=== PATIENT | female | born 1990 | race African-American/Black ===

== ENCOUNTER 2016-11-18 18:30 | Inpatient (IN) | payer OTHER ==
[~2016-11-18] VITALS: Ht 154.9 cm; Wt 63.5 kg
--- NOTE | ~2016-11-18 | CR18 ---
[facility] A Service of [facility] RADIOLOGY TEXT RESULTS PATIENT: GARY SAMUELS LOCATION: [facility] 232-01 : 89 UNIT #: [id number] AGE: [address]: Joaquin Castillo MD SEX: F ORDER DR: [id number] [facility] [address] [facility]. [place], [place] [address] [id number] I MR#: [id number] Acc #: [id number] NAME: GARY SAMUELS : 1990 SEX: F STUDY DATE/TIME: 11/20/2016 15:38 UNIT: [facility] ROOM: [facility] STUDY DESCRIPTION: CR Ankle 2 Views Rt Attending Physician: Joaquin Castillo M.D. Ordering Physician: Joaquin Castillo M.D. MEDICAL IMAGING REPORT This report is preliminary unless electronic signature is present EXAM Right ankle 11/20/2016 HISTORY 26-year-old female status post ORIF right ankle today. COMPARISON Right ankle, 11/18/2016. FINDINGS 2 intraoperative fluoroscopic images demonstrate postsurgical changes from ORIF. Images were interpreted intraoperatively by the attending surgeon. Total fluoroscopic time 1 minute, 15 seconds. Dictated by... Javan Olson M.D. THIS IS AN ELECTRONICALLY VERIFIED REPORT Javan Olson M.D. at 11/23/2016 1:19 PM JULIO CESAR/elizabeth TD: 11/20/2016 21:23 JOB #: [id number] MEDICAL IMAGING REPORT Page 1 of 1 COPY
--- NOTE | ~2016-11-18 | CT71 ---
[facility] A Service of [facility] RADIOLOGY TEXT RESULTS PATIENT: GARY SAMUELS LOCATION: [facility] : 89 UNIT #: [id number] AGE: [address]: Joaquin Castillo MD SEX: F ORDER DR: [id number] [place] [id number] [facility]. [place], [place] [address] [id number] I MR#: [id number] Acc #: [id number] NAME: GARY SAMUELS. : 1990 SEX: F STUDY DATE/TIME: 11/18/2016 21:57 UNIT: [facility] ROOM: [facility] STUDY DESCRIPTION: CT Head Wo Contrast Attending Physician: Joaquin Castillo M.D. Ordering Physician: Sandrita Linda P.A.-C. Primary Care Physician: Renee Hall MEDICAL IMAGING REPORT This report is preliminary unless electronic signature is present EXAM CT head without contrast 11/18/2016 HISTORY 26-year-old female with head pain status post fall down stairs today. COMPARISON None. TECHNIQUE Routine unenhanced axial images performed through the brain. This CT examination was performed with one or more of the following radiation dose reduction techniques: automatic exposure control, adjustment of mA and/or kV according to patient size, and iterative reconstruction. FINDINGS No hemorrhage, acute infarction, mass lesion, or abnormal extraaxial fluid collection. No midline shift or focal mass effect. Ventricular system is normal in size and configuration. No acute bony abnormality. Visualized paranasal sinuses and mastoid air cells are clear. IMPRESSION Negative unenhanced head CT. Dictated by... Javan Olson M.D. THIS IS AN ELECTRONICALLY VERIFIED REPORT Javan Olson M.D. at 11/19/2016 4:03 PM JULIO CESAR/teresita TD: 11/19/2016 07:11 [facility] A Service [facility] RADIOLOGY TEXT RESULTS PATIENT: GARY SAMUELS LOCATION: [facility] : 89 UNIT #: [id number] AGE: [address]: Joaquin Castillo MD SEX: F ORDER DR: JOB #: [id number] MEDICAL IMAGING REPORT Page 1 of 1 COPY
--- NOTE | ~2016-11-18 | CR18 ---
[facility] A Service of [facility] RADIOLOGY TEXT RESULTS PATIENT: GARY SAMUELS LOCATION: [facility] 232- : [birth year] UNIT #: [id number] AGE: [address]: Joaquin Castillo MD SEX: F ORDER DR: [id number] [facility] [address] [facility]. [place], [place] [address] [id number] I MR#: [id number] Acc #: [id number] NAME: GARY SAMUELS. : 1990 SEX: F STUDY DATE/TIME: 11/18/2016 21:30 UNIT: [facility] ROOM: [facility] STUDY DESCRIPTION: CR Ankle 2 Views Rt Attending Physician: Joaquin Castillo M.D. Ordering Physician: Sandrita Linda P.A.-C. Primary Care Physician: Renee Hall MEDICAL IMAGING REPORT This report is preliminary unless electronic signature is present EXAM Right ankle, 11/18/2016. HISTORY 26-year-old female postreduction of right ankle fracture dislocation status post fall down stairs today. COMPARISON Right ankle same date. FINDINGS Three views of the right ankle demonstrate interval reduction of previously described fracture dislocation of the tibiotalar joint. There are again noted mildly displaced fractures of the distal fibular metaphysis, posterior malleolus, and medial malleolus; which demonstrated improved alignment. Satisfactory reduction of the tibiotalar joint. IMPRESSION Satisfactory reduction of the tibiotalar dislocation with improved alignment of fractures involving the medial malleolus, posterior malleolus, and distal fibular metaphysis. Dictated by... Javan Olson M.D. THIS IS AN ELECTRONICALLY VERIFIED REPORT Javan Olson M.D. at 11/19/2016 4:03 PM JULIO CESAR/randy TD: 11/19/2016 06:46 JOB #: [id number] MEDICAL IMAGING REPORT [facility] A Service [facility] RADIOLOGY TEXT RESULTS PATIENT: GARY SAMUELS LOCATION: [facility] 232-01 : [birth year] UNIT #: [id number] AGE: [address]: Joaquin Castillo MD SEX: F ORDER DR: Page 1 of 1 COPY
--- NOTE | ~2016-11-18 | DS ---
Unit #: [id number] #: [id number] Patient: GARY SAMUELS [id number] [address] [address] [id number] I MR#: [id number] NAME: GARY SAMUELS ROOM: 232 Age: 26 Sex: F Admission Date: 11/19/2016 : 1990 Discharge Date: 11/21/2016 Attending Physician: Joaquin Castillo M.D. Primary Care Physician: Renee Hall DISCHARGE SUMMARY DISCHARGE DIAGNOSIS Right traumatic ankle fracture dislocation. INDICATION FOR ADMISSION Ms. Samuels is a 26-year-old pleasant female who fell on the stairs, sustained a right traumatic ankle fracture dislocation. She was admitted and underwent open reduction and internal fixation 11/20/[address] Joaquin Castillo. She tolerated the procedure well. Hospital course was uncomplicated. Physical therapy will evaluate and treat and do crutch training prior to discharge. She is to be strict nonweightbearing on the right lower extremity for 6 weeks. She will follow up in the office in 2 weeks, at which point sutures will be removed and repeat x-rays obtained of the right ankle. Any questions or concerns, please call the office at [phone]. Dictated by... Joaquin Castillo M.D. LUCINDA/mara TD: 11/23/2016 08:29 JOB #: [id number] DISCHARGE SUMMARY Page 1 of 1 X Joaquin Castillo MD X DISCHARGE SUMMARY
--- NOTE | ~2016-11-18 | HP ---
Unit #: [id number] #: [id number] Patient: YODIT SAMUELS [id number] [address] [place], [place] [address] [id number] I MR#: [id number] NAME: YODIT SAMUELS. ROOM: 232 Age: 26 Sex: F Admission Date: 11/19/2016 : 1990 Attending Physician: Joaquin Castillo M.D. Primary Care Physician: Renee Hall HISTORY AND PHYSICAL CHIEF COMPLAINT Right ankle injury. HISTORY OF PRESENT ILLNESS Yodit is a 26-year-old female, who reports that she was going up steps at apartment and she tried to turn around to go back downstairs and she may have blacked out and fallen down the steps. When she came to, her ankle was dislocated. She was brought to the emergency room. She was sedated and the ankle was put back in place. She was placed into a splint. Symptoms were worse with motion, better with rest. She describes a dull ache. She is doing okay right now. No prior problems with the ankle. Head CT was performed and negative. PAST MEDICAL HISTORY None. PAST SURGICAL HISTORY x2. MEDICATIONS None. ALLERGIES None. SOCIAL HISTORY The patient does smoke cigarettes daily. She denies alcohol or drug use. She is employed within the medical field. REVIEW OF SYSTEMS No other pertinent positives or negatives noted, other than what is mentioned in the HPI. PHYSICAL EXAMINATION GENERAL: Patient is alert and oriented for exam. No acute distress. VITAL SIGNS: Temperature 98.4 degrees Fahrenheit, pulse 70, respiratory rate 16, 100% oxygen saturation on room air, blood pressure 130/90. HEENT: Normocephalic and atraumatic. Extraocular movements intact. Mucous membranes moist. NECK: Cervical spine midline with full motion. No appreciable JVD. LUNGS: Breathing nonlabored and chest rise symmetric. HEART: Regular rate and rhythm. ABDOMEN: Soft, nontender, nondistended. EXTREMITIES: No clubbing, cyanosis, or edema. Unit #: [id number] #: [id number] Patient: YODIT SAMUELS SKIN: No skin lesions. Focused examination of the right lower extremity reveals splint in place. Digit motion intact of the toes. Foot warm and well perfused. Compartments are soft. Tenderness to palpation noted. DIAGNOSTIC STUDIES IMAGING: Head CT: Negative. X-rays of the right ankle reveal a fracture/dislocation status post reduction. There was a trimalleolar ankle fracture. ASSESSMENT Right trimalleolar ankle fracture/dislocation. PLAN The patient can have regular diet. She will be NPO after midnight. Will plan for ORIF tomorrow. Risks, benefits, and alternatives of surgery were discussed with the patient. Informed consent will be obtained. Risks include but not limited to infection, bleeding, nerve injury, blood clots, risks associated with anesthesia, need for further surgery, and possibly . All of her questions were answered. Will proceed with surgery by Dr. Castillo tomorrow. Dictated by Martin Mckeon M.D. ALEXI/maryuri TD: 11/19/2016 12:47 JOB #: [id number] CC: [phone] HISTORY AND PHYSICAL Page 1 of 1 X X HISTORY AND PHYSICAL
--- NOTE | ~2016-11-18 | OR ---
Unit #: [id number] #: [id number] Patient: GARY SAMUELS [id number] [place] [address] [facility]. [place], [place] [address] [id number] I MR#: [id number] NAME: GARY SAMUELS. ROOM: 232 Date of Procedure: 11/20/2016 Admission Date: 11/19/2016 Surgeon: Joaquin Castillo M.D. : 1990 Attending Physician: Joaquin Castillo M.D. Primary Care Physician: Renee Hall OPERATIVE REPORT PREOPERATIVE DIAGNOSIS Right trimalleolar ankle fracture. POSTOPERATIVE DIAGNOSIS Right trimalleolar ankle fracture. PROCEDURE PERFORMED Open reduction and internal fixation, right trimalleolar ankle fracture. PAINTER SUPERVISOR Ariel William Sr, M.D. ANESTHESIA General endotracheal anesthesia. COMPLICATIONS None. COUNTS Sponge and needle counts were correct at the conclusion of the case. INDICATION FOR SURGERY Ms. Pinon is a 26-year-old female who fell on the stairs and sustained a right trimalleolar ankle fracture dislocation. She presented to [facility] Emergency Room. She underwent closed reduction, and was splinted. Orthopedics was consulted for definitive management. Risks and benefits of open reduction and internal fixation were discussed in detail. Risks of infection, deep vein thrombosis, pulmonary embolism, DVT, PE, need for revision surgery, persistent pain, need for removal of hardware, and . Questions were answered to her satisfaction. Informed consent was obtained. DESCRIPTION OF PROCEDURE After the patient was identified in the preoperative holding area, the operative site was marked. The patient was brought to the operating room for surgery and placed supine on the operating room table. General endotracheal anesthesia was placed uneventfully. A bump underneath the right hip was placed and the right lower extremity prepped and draped in the usual sterile fashion. Esmarch was used to exsanguinate the limb. Tourniquet was inflated to 250 mmHg. Then, making a lateral based incision with a #15 blade scalp was utilized, full-thickness incision was made down to the periosteum. The fracture was encountered. The hematoma Unit #: [id number] #: [id number] Patient: GARY SAMUELS was removed. The fracture line was debrided of fracture hematoma. It was reduced with a bone reduction forceps. Following this, the anterior-posterior screw was placed. A transverse 3.5 screw followed by 2.5 screw and was measured in appropriate length, 3.5 cortical screw was placed and then using a Trae 4 hole distal fibular locking plate was then applied. Using C-arm guidance, the screw holes were filled in standard AO fashion using a combination of locking and nonlocking screws. Then, attention was then directed to the medial malleolus where a curvilinear incision was made over the medial malleolus. It was reduced with [id number] bone reduction clamp reducing the fracture. Then, 2 threaded K-wires were placed across the fracture line using the cannulated screw set. Two 40 mm 1/ 2 threaded screws were placed holding the medial malleolar fracture in good position. Then, a lateral C-arm x-ray was obtained which showed the posterior malleolar fragment to be least 30% of the total anterior to posterior tibial depth. Then, using a Vina along posterior to the lateral malleolus was used to reduce the fracture and then 2 threaded K-wires were placed through a separate anterior based incision was placed into the posterior tibial fragment. This was measured and then 40 and a 42 one-third threaded cannulated screws were placed across the fracture line holding the fracture area nicely. Following this, the wounds were copiously irrigated with sterile saline. Final x-rays AP mortise and lateral views were obtained which showed good fracture reduction and hardware placement. The fascial layer was closed with 0 Vicryl, 2-0 Vicryl, and 3-0 nylon was used to close the skin. Sterile dressings were applied. She was placed in a splint and was awakened and taken to recovery in stable condition. No intraoperative complications. Dictated by... Rach Maya/china TD: 11/21/2016 14:41 JOB #: [id number] OPERATIVE REPORT Page 1 of 1 X Joaquin Castillo MD X PROCEDURE OPERATIVE NOTE
--- NOTE | ~2016-11-18 | CR18 ---
[facility] A Service of [facility] RADIOLOGY TEXT RESULTS PATIENT: GARY SAMUELS LOCATION: [facility] 232-01 : [birth year] UNIT #: [id number] AGE: [address]: Joaquin Castillo MD SEX: F ORDER DR: [id number] [facility] [address] [facility]. [place], [place] [address] [id number] I MR#: [id number] Acc #: [id number] NAME: GARY SAMUELS. : 1990 SEX: F STUDY DATE/TIME: 11/18/2016 19:06 UNIT: [facility] ROOM: [facility] STUDY DESCRIPTION: CR Ankle 2 Views Rt Attending Physician: Joaquin Castillo M.D. Ordering Physician: Sandrita Linda P.A.-C. Primary Care Physician: Renee Hall MEDICAL IMAGING REPORT This report is preliminary unless electronic signature is present EXAM Right ankle, 11/18/2016. HISTORY 26-year-old female with right ankle pain status post fall down stairs today. COMPARISON None. FINDINGS Two views of the right ankle demonstrate posterior tibiotalar dislocation with a displaced articular fracture of the posterior malleolus. There is at least 1.6 cm gap at the articular surface. The posterior fracture fragment measures at least 4 cm in length. There is also a displaced spiral oblique fracture of the distal fibular metaphysis and a displaced transverse fracture through the medial malleolus. There is posterior displacement of the talus at least 2.5 cm and lateral displacement at least 1.9 cm relative to the distal tibia. IMPRESSION Posterolateral dislocation of the tibiotalar joint with displaced fractures of the posterior malleolus, medial malleolus, and distal fibular metaphysis. Dictated by... Javan Olson M.D. THIS IS AN ELECTRONICALLY VERIFIED REPORT Javan Olson M.D. at 11/19/2016 3:58 PM JULIO CESAR/randy TD: 11/19/2016 05:23 [facility] A Service of [facility] RADIOLOGY TEXT RESULTS PATIENT: GARY SAMUELS LOCATION: [place] [address] : [birth year] UNIT #: [id number] AGE: [address]: Joaquin Castillo MD SEX: F ORDER DR: JOB #: [id number] MEDICAL IMAGING REPORT Page 1 of 1 COPY
--- NOTE | ~2016-11-18 | CT52 ---
[facility] A Service of [facility] RADIOLOGY TEXT RESULTS PATIENT: GARY SAMUELS LOCATION: A - : 89 UNIT #: [id number] AGE: [address]: Joaquin Castillo MD SEX: F ORDER DR: [id number] [place] [address] [facility]. [place], [place] [address] [id number] I MR#: [id number] Acc #: [id number] NAME: GARY SAMUELS. : 1990 SEX: F STUDY DATE/TIME: 11/18/2016 21:57 UNIT: [facility] ROOM: [facility] STUDY DESCRIPTION: CT Cervical Spine Wo Cont Attending Physician: Joaquin Castillo M.D. Ordering Physician: Sandrita Linda P.A.-C. Primary Care Physician: Renee Hall MEDICAL IMAGING REPORT This report is preliminary unless electronic signature is present EXAM CT cervical spine without contrast 11/18/2016 HISTORY 26-year-old female with neck pain status post fall down stairs today. COMPARISON Cervical spine 04/14/2007. TECHNIQUE Helical scan performed through the cervical spine without IV contrast. Coronal and sagittal reformatted images. This CT examination was performed with one or more of the following radiation dose reduction techniques: automatic exposure control, adjustment of mA and/or kV according to patient size, and iterative reconstruction. FINDINGS No evidence of acute fracture or subluxation. Vertebral body heights and alignment are normally maintained. Prevertebral soft tissues are normal. The atlantoaxial relationship normal. Cervicothoracic junction is unremarkable. No significant bony canal stenosis. There is mild reversal of the normal cervical lordosis as the patient is positioned in the scanner. Paravertebral soft tissues are unremarkable. Lung apices are unremarkable. IMPRESSION No acute cervical spine injury. There is mild reversal of the normal cervical lordosis as the patient is positioned in the scanner. Dictated by... Javan Olson M.D. [facility] A Service [facility] RADIOLOGY TEXT RESULTS PATIENT: GARY SAMUELS LOCATION: [facility] 232-01 : [birth year] UNIT #: [id number] AGE: [address]: Joaquin Castillo MD SEX: F ORDER DR: THIS IS AN ELECTRONICALLY VERIFIED REPORT Javan Olson M.D. at 11/19/2016 4:04 PM Coby TD: 11/19/2016 07:52 JOB #: [id number] MEDICAL IMAGING REPORT Page 1 of 1 COPY
[~2016-11-18 18:30] MED LIST: BACTRIM DS TABL1 TA1 PO; BENZONATATE PO; DIFLUCAN PO; FLONASE16 GM; LORTAB 5/500 TA1 TA1 PO; MACROBID 100 M100 MG PO; METRONIDAZOLE PO; PHENERGAN PO; PHENERGAN12.5 M1 PR; PHENERGAN25 MG PO; TAMIFLU6 MG/1 ML PO; ZITHROMAX PO
[2016-11-20 06:12] LABS: HEMATOCRIT 34.8 % (35.0-45.0); HEMOGLOBIN 11.3 gm/dL (12.0-16.0); MEAN CELL VOLUME 89.9 FL (83-96); MEAN CORPUSCULAR HEMOGLOBIN 29.2 PG (28-34); MEAN CORPUSCULAR HGB CONC 32.5 g/dL (30-36); MEAN PLATELET VOLUME 8.3 FL (6.5-11.5); RED BLOOD COUNT 3.87 X10e (3.90-5.30); RED CELL DISTRIBUTION WIDTH 13.8 % (11.0-15.5); WHITE BLOOD COUNT 6.9 X10e3 (4.0-10.5)
[2016-11-20 06:22] LABS: PROTHROMBIN TIME (PATIENT) 11.1 SECONDS (10.0-11.7)
[2016-11-20 06:55] LABS: BUN/CREATININE RATIO 16.66; CALCIUM SERUM 8.3 mg/dL (8.4-10.2); CREATININE SERUM 0.6 mg/dL (0.6-1.4); GLOM FILT RATE Estimated 144.8 mL/min (>60); POTASSIUM 3.4 mmol/L (3.5-5.1)
[2016-11-21] MEDS ORDERED: BAYER ASPIRIN325 M1 PO (09:04)
[2016-11-21] MEDS ORDERED: PERCOCET 5/321 UDTAB PO (09:05)
== END 2016-11-21 11:39 | disposition home or self-care (01) | DRG 494 ==
LOC: CED 18:30 → C2A 11-19 01:20 → CEDOF 11-19 01:20 → C2A 11-19 01:37 → CEDOF 11-19 01:37 → CED 11-19 01:37 → C2A 11-19 03:39 → CEDOF 11-19 03:39 → C2A 11-21 11:39
PROVIDERS: Specialist
PROC: 0QSG04Z Reposition Right Tibia with Internal Fixation Device, Open Approach (ICD-10-PCS; 2016-11-20)
PROC: 0QSJ04Z Reposition Right Fibula with Internal Fixation Device, Open Approach (ICD-10-PCS; principal; 2016-11-20 14:00)
DX: S82.851A Displaced trimalleolar fracture of right lower leg, initial encounter for closed fracture (principal); F17.210 Nicotine dependence, cigarettes, uncomplicated; W10.9XXA Fall (on) (from) unspecified stairs and steps, initial encounter
CPT/HCPCS: 27818; 70450; 72125; 73600; 76001; 80048; 84703; 85027; 85610; 94010; 96374; 96375; 97116; 97162; 99152; 99285; C1713; G8978-GP; G8979-GP; J0690; J1100; J1170; J1650; J2250; J2405; J2550; J2795; J3010

== ENCOUNTER 2016-11-25 19:45 | Emergency (ER) | payer OTHER ==
--- NOTE | ~2016-11-25 | CR63 ---
[facility] A Service of [facility] RADIOLOGY TEXT RESULTS PATIENT: GARY SAMUELS LOCATION: [facility] : 89 UNIT #: [id number] AGE: [address]: DON CALIXTO APRN SEX: F ORDER DR: [id number] [facility] [address] [facility]. [place], [place] [address] [id number] E MR#: [id number] Acc #: [id number] NAME: GARY SAMUELS. : 1990 SEX: F STUDY DATE/TIME: 11/25/2016 20:29 UNIT: [facility] ROOM: STUDY DESCRIPTION: CR Chest 2 View Attending Physician: Don Calixto Aprn Ordering Physician: Don Calixto Aprn Primary Care Physician: Renee Hall M.D. MEDICAL IMAGING REPORT This report is preliminary unless electronic signature is present EXAM Chest PA and lateral, 11/25/2016 HISTORY Chest pain, chest tightness, cough, chest congestion and shortness of breath beginning today. FINDINGS PA and lateral examination of the chest upright shows a good expansion of the parenchyma with a normal distribution of the pulmonary vascularity. There is no indication of congestion, effusion, infiltrate, tumor, or nodular density. The pleural reflections and diaphragmatic contours are normal. The cardiac silhouette and mediastinal anatomy is within normal limits. IMPRESSION Normal chest. Dictated by... Christiano Lucio M.D. THIS IS AN ELECTRONICALLY VERIFIED REPORT Christiano Lucio M.D. at 11/26/2016 2:08 PM ASHLEIGH/paty TD: 11/25/2016 22:29 JOB #: [id number] MEDICAL IMAGING REPORT Page 1 of 1 COPY
--- NOTE | ~2016-11-25 | EKG ---
PATIENT: GARY SAMUELS UNIT #: [id number] Ventricular Rate: 96 BPM Atrial Rate: 96 BPM P-R Interval: 146 ms QRS Duration: 82 ms Q-T Interval: 352 ms QTC Calculation(Bezet): 444 ms P [place]: 65 degrees Calculated R [place]: 75 degrees Calculated T [place]: 45 degrees Diagnosis Line: Normal sinus rhythm Diagnosis Line: Normal ECG Diagnosis Line: No previous ECGs available Diagnosis Line: Confirmed by XIOMY GALLEGO MD ([id number]) on Diagnosis Line: 11/26/2016 1:33:19 PM INTERPRETING MD: JULIÁN HARRELL
--- NOTE | ~2016-11-25 | CT16 ---
[facility] A Service of [facility] RADIOLOGY TEXT RESULTS PATIENT: GARY SAMUELS LOCATION: [facility] : [birth year] UNIT #: [id number] AGE: [address]: DON CALIXTO APRN SEX: F ORDER DR: [id number] [facility] [address] [place], [place] [address] [id number] E MR#: [id number] Acc #: [id number] NAME: GARY SAMUELS. : 1990 SEX: F STUDY DATE/TIME: 11/25/2016 23:24 UNIT: [facility] ROOM: STUDY DESCRIPTION: CT Angio Chest for PE Attending Physician: Don Calixto Aprn Ordering Physician: Don Calixto Aprn Primary Care Physician: Renee Hall M.D. MEDICAL IMAGING REPORT This report is preliminary unless electronic signature is present EXAM Chest CTA, 11/25 at 2324 hours. INDICATIONS Cough, vomiting, nasal congestion today. There is mid chest pain and pressure as well. Elevated D-dimer. Recent surgery for right ankle fracture. TECHNIQUE Axial images were obtained through the chest following IV contrast administration. 3-D reformats were obtained. No comparison. This CT exam was performed with one or more of the following radiation dose reduction techniques: automatic exposure control, adjustment of mA and/or kV according to patient size, and iterative reconstruction. FINDINGS No pulmonary embolism or aortic dissection is seen. There is no pleural or pericardial effusion. There is no adenopathy. The lungs are clear, except for some mild dependent atelectasis in the lower lobes. Continuation through the upper abdomen is unremarkable. IMPRESSION 1. No pulmonary embolism or aortic dissection. 2. No active disease, except for some minimal dependent atelectasis in the lower lobes. Dictated by... Arjun Weller Jr., M.D. THIS IS AN ELECTRONICALLY VERIFIED REPORT Arjun Weller Jr., M.D. at 11/26/2016 6:02 AM JONASK/randy [facility] A Service of [facility] RADIOLOGY TEXT RESULTS PATIENT: GARY SAMUELS LOCATION: [facility] : 89 UNIT #: [id number] AGE: [address]: DON CALIXTO APRN SEX: F ORDER DR: TD: 11/26/2016 05:52 JOB #: [id number] MEDICAL IMAGING REPORT Page 1 of 1 COPY
[~2016-11-25 19:45] MED LIST changes: +BAYER ASPIRIN325 M1 PO; +PERCOCET 5/321 UDTAB PO
[2016-11-25 22:19] LABS: POC - TROPONIN <0.05 ng/mL (<=0.05)
[2016-11-26] LABS: POC - CREATININE 0.66 mg/dL (0.44-1.03); POC - GFR >60.0 mL/min (>60)
== END 2016-11-26 01:15 | disposition home or self-care (01) ==
LOC: CFTX 19:45 → CED 19:45 → CFTX 20:51
PROVIDERS: Nurse Practitioner Family
DX: J20.9 Acute bronchitis, unspecified (principal); F17.210 Nicotine dependence, cigarettes, uncomplicated; Z79.899 Other long term (current) drug therapy
CPT/HCPCS: 36415; 71020; 71275; 82553; 82565; 84484; 85379; 93005; 94640; 96360; 99284; Q9967